=== PATIENT | female | born 1990 | race African-American/Black ===

== ENCOUNTER 2020-02-04 03:28 | Emergency (ER) | payer MEDICAID ==
[~2020-02-04] VITALS: Ht 162.6 cm; Wt 84.0 kg
[2020-02-04 04:37] VITALS: BP 130/45
== END 2020-02-04 04:38 | disposition home or self-care (01) ==
LOC: ER 03:28
DX: M25.552 Pain in left hip (principal)
CPT/HCPCS: 99281; 99282